=== PATIENT | male | born 1995 | race American Indian/Alaskan Native ===

== ENCOUNTER 2016-11-13 11:28 | Emergency (ER) | payer MEDICAID ==
[2016-11-13 12:02] VITALS: BP 120/66
--- NOTE | 2016-11-13 14:22 | Emergency Department Report ---
HPI - General Chief Complaint: Skin/Abscess/Foreign Body Time Seen by Provider: 11/13/16 13:29 - HPI HPI: This is a 20-year-old male presents with burning type pain sensation on a genital. Patient states about a month ago he was bitten by sick on his scrotum which he found while he was driving in the shower month ago. Patient states he had been assessed by primary care after the incident and was told that. His exam was normal. She states about 4 days ago he started experiencing some burning type sensation on his penile shaft. He denies urination, penile discharge, scrotal pain or swelling, ED Past Medical Hx - Past Medical History Previous Medical History?: No - Surgical History Past Surgical History?: Yes Additional Surgical History: SKIN TAG REMOVED LEFT EAR - Social History Smoking Status: Never Smoker Substance Use Type: None - Medications Home Medications: Home Medications Medication Instructions Recorded Confirmed Last Taken Type Acetaminophen/Codeine [Tylenol #3] 1 tab PO Q6H PRN #20 tab 09/23/14 Unknown Rx Ibuprofen [Motrin 600 MG tab] 600 mg PO Q8H PRN #50 tablet 11/13/16 Unknown Rx valACYclovir [Valtrex] 500 mg PO BID #14 tab 11/13/16 Unknown Rx ED Review of Systems ROS: Stated complaint: TICK BITE/GENITAL AREA Other details as noted in HPI Constitutional: denies: chills, fever Eyes: denies: eye pain, eye discharge, vision change ENT: denies: ear pain, throat pain Respiratory: denies: cough, shortness of breath, wheezing Cardiovascular: denies: chest pain, palpitations Endocrine: no symptoms reported Gastrointestinal: denies: abdominal pain, nausea, vomiting, diarrhea Genitourinary: denies: urgency, dysuria Musculoskeletal: denies: back pain, joint swelling, arthralgia Skin: denies: rash, lesions Neurological: denies: headache, weakness, paresthesias Psychiatric: denies: anxiety, depression Hematological/Lymphatic: denies: easy bleeding, easy bruising Physical Exam - Physical Exam Vital Signs: Vital Signs 11/13/16 11:57 Temperature 98 F Pulse Rate 56 L Respiratory 16 Rate Blood Pressure 120/66 O2 Sat by Pulse 100 Oximetry Physical Exam: GENERAL: Alert and oriented x3, no apparent distress, Normal Gait, atraumatic. HEAD: Head is normocephalic and a-traumatic. EYES: Extra ocular muscles are intact. Pupils are equal, round, and reactive to light and accommodation. NECK: Supple. Non edematous, LUNGS: Symetrical with respiration, No wheezing, no rales or crackles, CTAB. HEART: S1, S2 present, regular rate and rhythm without murmur, no rubs, no gallops. Non tender to palpation ABDOMEN: No organomegaly was noted,Positive bowel sounds, soft, and non- distended. . Nontender to palpation on all Quadrants, NO CVA tenderness. UROGENITAL: No scrotal mass, scab-like lesions on the penile shaft. Scrotum non tender to palpation bilaterally, no hernia, no scars or penile discharge. PSYCHIATRIC: Mood is congruent with affect, denies suicidal or homicidal ideations. SKIN: Warm and dry, No lesions, No ulceration or induration present. ED Course Vital Signs 11/13/16 11:57 Temperature 98 F Pulse Rate 56 L Respiratory 16 Rate Blood Pressure 120/66 O2 Sat by Pulse 100 Oximetry ED Medical Decision Making - Medical Decision Making 20-year-old male presents with a herpetic genital lesions ED course: Discussed with patient and her herpes. Discussed the patient further STD testing to primary care. Discussed medication help reduce infection. Discussed the patient's symptoms worsen to return to ED. Vital signs are normal patient is in no acute distress. Critical care attestation.: If time is entered above; I have spent that time in minutes in the direct care of this critically ill patient, excluding procedure time. ED Disposition Clinical Impression: Male genital lesion Disposition: - TO HOME OR SELFCARE Is pt being admited?: No Does the pt Need Aspirin: No Condition: Stable Instructions: Genital Herpes Simplex (ED) Prescriptions: Ibuprofen [Motrin 600 MG tab] 600 mg PO Q8H PRN #50 tablet PRN Reason: Pain valACYclovir [Valtrex] 500 mg PO BID #14 tab Referrals: PRIMARY CARE, [Primary Care Provider] - 3-5 Days [facility] [Outside] - 3-5 Days [facility] [Outside] - 3-5 Days [facility] [Outside] - 3-5 Days Forms: Work/School Release Form(ED) Time of Disposition: 14:39
== END 2016-11-13 14:58 | disposition home or self-care (01) ==
LOC: ED 11:28
DX: L98.9 Disorder of the skin and subcutaneous tissue, unspecified (principal)
CPT/HCPCS: 99282